=== PATIENT | female | born 1965 | race Caucasian/White ===

== ENCOUNTER 2016-12-04 20:14 | Emergency (ER) | payer OTHER ==
[2016-12-04] MEDS ORDERED: DUONEB 0.5-3 MG/3 ml Neb IH ONE ×2 (20:17→20:18)
[2016-12-04] MEDS ORDERED: solu-MEDROL 125 MG IV ONE (20:17)
--- NOTE | 2016-12-04 20:24 | ERPHSYRPT ---
- History of Present Illness Time Seen by Provider: 12/04/16 20:16 Source: patient, family () Physician History: CC: diff breathing Hx: 51 y/o patient of RACHEL Mccartney. She has hx of intermittent asthma. Uses prn inhalers/nebs. No real bad exacerbation for 5 years. No other medications. Today she has cough, wheeze, diff breathing. [place] hot. Coworkers have been in hospital with flu. No chest pain. Prior hysterectomy. Symptoms moderate and not relieved with inhalers at home X2 this afternoon. Timing/Duration: today Severity of Dyspnea-Max: moderate Severity of Dyspnea-Current: moderate Allergies/Adverse Reactions: No Known Drug Allergies Allergy (Unverified 05/13/13 09:35) Home Medications: No Home Meds 0 05/13/13 [History] Hx Tetanus, Diphtheria Vaccination/Date Given: Yes Hx Influenza Vaccination/Date Given: No Hx Pneumococcal Vaccination/Date Given: No - Review of Systems Constitutional: No Fever, No Chills Eyes: No Symptoms Ears, Nose, & Throat: No Throat Pain Respiratory: Cough, Dyspnea, Wheezing Cardiac: No Chest Pain Abdominal/Gastrointestinal: No Abdominal Pain, No Nausea, No Vomiting Genitourinary Symptoms: No Symptoms Skin: No Rash Neurological: No Headache All Other Systems: Reviewed and Negative - Past Medical History Pertinent Past Medical History: Yes Respiratory History: Asthma Other Medical History: Pituitary Tumor - Past Surgical History Past Surgical History: Yes Female Surgical History: Hysterectomy Other Surgical History: TONSILLECTOMY - Social History Smoking Status: Never smoker Exposure to second hand smoke: No Drug Use: none Patient Lives Alone: No ( here with , 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) Significant Family History: no pertinent family hx - Female History Hx Now: No - Nursing Vital Signs Nursing Vital Signs: Initial Vital Signs Temperature 99.0 F Temperature Source Oral Pulse Rate 97 Respiratory Rate 22 Blood Pressure [] 159/85 Pain Intensity 0 - Physical Exam General Appearance: alert, obese Eye Exam: PERRL/EOMI Neck Exam: normal inspection, non-tender, supple Respiratory Exam: wheezing (scattered) Cardiovascular/Chest Exam: regular rate/rhythm Abdominal/Gastrointestinal Exam: soft, No tenderness, No distention Extremity Exam: non-tender, normal range of motion, no calf tenderness, no pedal edema Neurologic Exam: alert, oriented x 3, cooperative, sensation nml, No motor deficits Skin Exam: warm, dry, No rash SpO2 Interpretation: normal SpO2: 98 Oxygen Delivery: Room Air - Course Nursing assessment & vital signs reviewed: Yes - Radiology Exams cxr X-ray Interpretation: Reviewed by me (poor inspiration, no consolidation) Ordered Tests: Active Orders 24 hr Category Date Time Status IV Insertion STAT Care 12/04/16 20:17 Active Pulse Oximetry (ED) STAT Care 12/04/16 20:17 Active CHEST 1 VIEW (PORTABLE) Stat Exams 12/04/16 20:17 Taken CBC W DIFF Stat Lab 12/04/16 20:30 Completed CMP Stat Lab 12/04/16 20:30 Completed Lactic Acid Urgent Lab 12/04/16 20:17 Completed MAGNESIUM Stat Lab 12/04/16 20:30 Completed Respiratory Nebulizer STAT RT 12/04/16 20:17 Completed Respiratory Nebulizer STAT RT 12/04/16 21:07 Active Medication Summary Discontinued Medications Generic Name Dose Route Start Last Admin Trade Name Freq PRN Reason Stop Dose Admin Albuterol Sulfate 2.5 mg 12/04/16 21:07 12/04/16 21:16 Proventil 2.5 Mg/3 Ml Neb IH 12/04/16 21:08 2.5 mg STAT ONE Administration Albuterol Sulfate Confirm 12/04/16 21:14 Proventil 2.5 Mg/3 Ml Neb Administered 12/04/16 21:15 Dose 2.5 mg IH .STK-MED ONE Albuterol/Ipratropium 3 ml 12/04/16 20:17 12/04/16 20:22 Duoneb 0.5-3 Mg/3 Ml Neb IH 12/04/16 20:18 3 ml STAT ONE Administration Albuterol/Ipratropium Confirm 12/04/16 20:18 Duoneb 0.5-3 Mg/3 Ml Neb Administered 12/04/16 20:19 Dose 3 ml IH .STK-MED ONE Methylprednisolone Sodium Succinate 125 mg 12/04/16 20:17 12/04/16 20:37 Solu-Medrol 125 Mg IV 12/04/16 20:18 125 mg STAT ONE Administration Methylprednisolone Sodium Succinate Confirm 12/04/16 20:25 Solu-Medrol 125 Mg Administered 12/04/16 20:26 Dose 125 mg .ROUTE .STK-MED ONE Lab/Rad Data: Laboratory Result Diagrams 12/04/16 20:30 12/04/16 20:30 Laboratory Results 12/04/16 12/04/16 12/04/16 Range/Units 20:30 20:30 20:25 WBC 9.4 (4.0-10.5) K/mm3 RBC 4.76 (4.1-5.4) M/mm3 Hgb 14.5 (12.0-16.0) gm/dl Hct 42.4 (35-47) % MCV 89.1 (78-100) fl MCH 30.5 (26-32) pg MCHC 34.2 (32-36) g/dl RDW 13.4 (11.5-14.0) % Plt Count 218 (150-450) K/mm3 MPV 9.1 (6-9.5) fl Gran % 74.6 H (36.0-66.0) % Lymphocytes % 15.0 L (24.0-44.0) % Monocytes % 5.2 (0.0-12.0) % Eosinophils % 4.9 (0.00-5.0) % Basophils % 0.3 (0.0-0.4) % Basophils # 0.03 (0-0.4) Sodium 144 (136-145) mEq/L Potassium 4.0 (3.5-5.1) mEq/L Chloride 105 (98-107) mEq/L Carbon Dioxide 30.6 (21-32) mEq/L Anion Gap 12.6 (5-15) MEQ/L BUN 16 (9-20) mg/dL Creatinine 0.94 (0.55-1.30) mg/dl Estimated GFR > 60 ML/MIN Glucose 130 H (70-110) MG/DL Lactic Acid (0.4-2.0) Calcium 8.9 (8.5-10.1) mg/dL Magnesium 1.9 (1.8-2.4) mg/dL Total Bilirubin 0.6 (0.2-1.0) mg/dL AST 33 (15-37) U/L ALT 71 (12-78) U/L Alkaline Phosphatase 69 (46-116) U/L Serum Total Protein 7.5 (6.4-8.2) gm/dL Albumin 3.7 (3.4-5.0) g/dL Influenza Type A Ag NEGATIVE (NEGATIVE) Influenza Type B Ag NEGATIVE (NEGATIVE) RSV (PCR) NEGATIVE (Negative) 12/04/16 Range/Units 20:17 WBC (4.0-10.5) K/mm3 RBC (4.1-5.4) M/mm3 Hgb (12.0-16.0) gm/dl Hct (35-47) % MCV (78-100) fl MCH (26-32) pg MCHC (32-36) g/dl RDW (11.5-14.0) % Plt Count (150-450) K/mm3 MPV (6-9.5) fl Gran % (36.0-66.0) % Lymphocytes % (24.0-44.0) % Monocytes % (0.0-12.0) % Eosinophils % (0.00-5.0) % Basophils % (0.0-0.4) % Basophils # (0-0.4) Sodium (136-145) mEq/L Potassium (3.5-5.1) mEq/L Chloride (98-107) mEq/L Carbon Dioxide (21-32) mEq/L Anion Gap (5-15) MEQ/L BUN (9-20) mg/dL Creatinine (0.55-1.30) mg/dl Estimated GFR ML/MIN Glucose (70-110) MG/DL Lactic Acid 1.9 (0.4-2.0) Calcium (8.5-10.1) mg/dL Magnesium (1.8-2.4) mg/dL Total Bilirubin (0.2-1.0) mg/dL AST (15-37) U/L ALT (12-78) U/L Alkaline Phosphatase (46-116) U/L Serum Total Protein (6.4-8.2) gm/dL Albumin (3.4-5.0) g/dL Influenza Type A Ag (NEGATIVE) Influenza Type B Ag (NEGATIVE) RSV (PCR) (Negative) - Progress Progress Note: 12/04/16 21:08 She feels much better after nebs. Steroids given. Await flu swab. Will repeat neb. She has duoneb at home. 12/04/16 21:38 A little tachycardic after neb. She feels better and wants to go home. Rx given. Counseled pt/family regarding: diagnosis, need for follow-up - Departure Time of Disposition: 21:38 Departure Disposition: Home Clinical Impression: Acute asthmatic bronchitis Condition: Fair Critical Care Time: No Referrals: Katty Mccartney NP [Primary Care Provider] - Instructions: Asthma -- Adult, Bronchitis Additional Instructions: UPPER RESPIRATORY INFECTIONS 1. The signs and symptoms of a cold may last up to 10 days. These illnesses are due to viruses which are not treatable with antibiotics. 2. The following suggestions can aid in recovery and to minimize symptoms: A. Increase fluid intake. B. Acetaminophen or Ibuprofen as directed. C. Avoid smoking environments as this will increase the risk of developing pneumonia. D. For children, may use a cool mist vaporizer in the child's room. 3. Contact your Family Physician if you note: A. Persisten fever >103 for more than 3 days B. Breathing difficulty C. Productive cough of yellow/green sputum D. Illness greater than 7 days E. Persistent vomiting F. Stiff neck Rx prednisone to start tomorrow. Rx doxycycline to start tomorrow. Use your duoneb every 4 hours as needed. Drink plenty of fluids. Return for problems or concerns. Follow up with ADMINISTRATIVE ASSISTANT next week. Prescriptions: Doxycycline Hyclate 100 mg [Vibramycin 100 MG] 100 mg PO BID #19 tab Prednisone 20 mg [Deltasone 20 mg] 2 tab PO DAILY #8 tablet
[2016-12-04] MEDS ORDERED: solu-MEDROL 125 MG ONE (20:25)
[2016-12-04 20:36] LABS: BASOPHIL % 0.3 % (0.0-0.4); Eosinophil % 4.9 % (0.00-5.0); Granulocytes % 74.6 % (36.0-66.0); Mean Cell Volume 89.1 fl (78-100); Mean Corpuscular Hemoglobin 30.5 pg (26-32); Mean Platelet Volume 9.1 fl (6-9.5); Monocytes % 5.2 % (0.0-12.0); Platelet Count 218 K/mm3 (150-450); Red Blood Count 4.76 M/mm3 (4.1-5.4); Red Cell Distribution Width 13.4 % (11.5-14.0); White Blood Count 9.4 K/mm3 (4.0-10.5)
[2016-12-04 20:57] LABS: ALBUMIN 3.7 g/dL (3.4-5.0); ALKALINE PHOSPHATASE 69 U/L (46-116); ANION GAP 12.6 MEQ/L (5-15); BILIRUBIN,TOTAL 0.6 mg/dL (0.2-1.0); BLOOD UREA NITROGEN 16 mg/dL (9-20); CHLORIDE 105 mEq/L (98-107); Carbon Dioxide 30.6 mEq/L (21-32); Glucose 130 MG/DL (70-110); MAGNESIUM 1.9 mg/dL (1.8-2.4); SGOT/AST 33 U/L (15-37); SGPT/ALT 71 U/L (12-78); SODIUM 144 mEq/L (136-145); Total Protein 7.5 gm/dL (6.4-8.2)
[2016-12-04] MEDS ORDERED: PROVENTIL 2.5 MG/3 ML NEB IH ONE ×2 (21:07→21:14)
[2016-12-04] MEDS ORDERED: Vibramycin 100 MG PO ONE (21:37)
[2016-12-04] MEDS ORDERED: DELTASONE 20 MG PO ONE (21:37)
[2016-12-04] MEDS ORDERED: DELTASONE 20 MG ONE (21:40)
[2016-12-04] MEDS ORDERED: Vibramycin 100 MG ONE (21:40)
[2016-12-04 21:49] VITALS: BP 145/63; PULSE 113; O2SAT 96
--- NOTE | 2016-12-05 08:45 | XRAY ---
Indication: Short of breath. Comparison: July 22, 2011. Portable chest slightly underinflated without focal infiltrate, consolidation, or large effusion. Heart is not enlarged. Bony thorax intact. Impression: Nonacute underinflated chest.
== END 2016-12-04 21:55 | disposition home or self-care (01) ==
LOC: ED 20:14
DX: J45.909 Unspecified asthma, uncomplicated (principal); R05 Cough; R06.2 Wheezing
CPT/HCPCS: 36000; 36415; 71010; 80053; 83605; 83735; 85025; 87631; 94640; 96374; 99284; J2930; A9270-GY

== ENCOUNTER 2022-11-09 13:00 | Day surgery (SDC) | payer OTHER ==
--- NOTE | 2022-11-09 10:55 | HP ---
DATE OF SURGERY: 11/09/2022 HISTORY OF PRESENT ILLNESS: The patient is a 57-year-old with nonhealing lesion on abdominal wall and posterior thigh question of lipoma or cyst. Regarding skin right posterior thigh area she did not want excised but given this enlarging thigh lipoma or cyst as well as nonhealing lesion of abdominal wall, she desires excision of both it and nonhealing lesion of indeterminate behavior on abdominal wall. PAST MEDICAL HISTORY: Asthma, arthritis. PAST SURGICAL HISTORY: T&A. Hysterectomy. MEDICATIONS: Albuterol sulfate. ALLERGIES: METFORMIN. FAMILY HISTORY: Negative in regards to this problem. SOCIAL HISTORY: No smoking or alcohol abuse. REVIEW OF SYSTEMS: Fourteen systems reviewed. No chest pain or palpitations. Other systems negative or noncontributory as above and per preadmission questionnaire. PHYSICAL EXAMINATION: BMI 38.97. GENERAL: No acute distress. HEENT: Sclerae nonicteric. NECK: No JVD. CHEST: Equal excursion, nonlabored breathing. CVS: Regular rate and rhythm. ABDOMEN: Soft. No peritoneal signs. Nonhealing abdominal wall lesion of indeterminate behavior. EXTREMITIES: No significant edema. Lipoma or cyst of right thigh. NEURO: Alert, oriented, moving extremities symmetrically. PSYCH: Appropriate mood and affect. SKIN: Dry. IMPRESSION: Enlarging right posterior thigh subcutaneous mass possible lipoma or cyst as well as nonhealing lesion abdominal wall of indeterminate behavior in need of excision. General risk of bleeding or infection possibly requiring packing, risk of hematoma or seroma formation, risk of wound dehiscence, aches, pains, burning or numbness, risk of anesthesia, deep venous thrombosis, pulmonary embolism, or pneumonia but not limited to. Risk of involved margins possibly requiring other procedures. Consent obtained. Will proceed with excisional biopsy of right posterior thigh subcutaneous mass and nonhealing lesion abdominal wall of indeterminate behavior as an outpatient.
[~2022-11-09 13:00] MED LIST: Lactated Ringers 1,000 ML IV ONE; Sensorcaine 0.25% 10 ML ONE
[2022-11-09] MEDS ORDERED: Lactated Ringers 1,000 ML IV ONE (13:22)
[2022-11-09] MEDS ORDERED: Lactated Ringers 1,000 ML IV SCH (13:30)
[2022-11-09] MEDS ORDERED: Sensorcaine 0.25% 10 ML ONE ×2 (14:16→15:54)
[2022-11-09] MEDS ORDERED: SUBLIMAZE 100 MCG/2 ML ONE ×2 (15:14→16:48)
[2022-11-09] MEDS ORDERED: Decadron 4 MG INJ ONE (15:14)
[2022-11-09] MEDS ORDERED: Xylocaine-Mpf 2% 5 Ml Vial ONE (15:14)
[2022-11-09] MEDS ORDERED: TORAdol 30 mg Injection ONE (15:14)
[2022-11-09] MEDS ORDERED: Zofran 4 MG/2 ML VIAL ONE ×2 (15:14→17:27)
[2022-11-09] MEDS ORDERED: Zemuron 100 MG/10 ML ONE (15:14)
[2022-11-09] MEDS ORDERED: DIPRIVAN 200 MG/20 ML IV ONE (15:14)
[2022-11-09] MEDS ORDERED: BRIDION 200MG/2ML IV ONE (15:14)
[2022-11-09] MEDS ORDERED: KEFZOL 1 GM** 3 G in Sodium Chloride 0.9% 50 ML 50 ML IV SCH (16:00)
[2022-11-09] MEDS ORDERED: MORPHINE SULFATE 10 MG/ML ONE (17:01)
[2022-11-09] MEDS ORDERED: Zofran 4 MG/2 ML VIAL IV PRN (17:27)
[2022-11-09 17:37] VITALS: O2SAT 92
[2022-11-09 17:47] VITALS: BP 141/99; PULSE 78
--- NOTE | 2022-11-10 11:42 | OP ---
SURGERY DATE/TIME: 11/09/2022 1526 PREOPERATIVE DIAGNOSES: 1) Enlarging posterior right thigh subcutaneous mass or lipoma. 2) Abdominal wall lesion of indeterminate behavior with intermittent bleeding. POSTOPERATIVE DIAGNOSES: 1) Enlarging posterior right thigh subcutaneous mass or lipoma. 2) Abdominal wall lesion of indeterminate behavior with intermittent bleeding. PROCEDURES: 1) Excisional biopsy of right posterior thigh subcutaneous mass or lipoma (approximately 4 cm) with intermediate closure. 2) Excisional biopsy of lesion of indeterminate behavior abdominal wall (approximately 1.5 cm with margins) with intermediate closure. SURGEON: Dr. Yury Palacios. ANESTHESIA: General. ESTIMATED BLOOD LOSS: Minimal. INDICATIONS: As noted above. Risks and benefits explained in detail and not limited to and consent obtained. The site had been confirmed and marked in the preoperative holding area. The abdominal wall area had some intermittent bleeding that improved a little bit. She still desires excision. DESCRIPTION OF PROCEDURE AND FINDINGS: Taken to the operating room. General anesthesia induced. She is placed in dorsal lithotomy position. She is prepped and draped in the usual sterile fashion. After official time out and no disagreement with planned procedure, starting first at the abdominal wall area marking out to normal appearing skin that she had available around the site. Dissection carried down to deep subcu. Specimen passed off. It measured about 1.5 cm with margins, had 2 to 2.5 cm long spindle-shaped excision. This is closed in intermediate fashion with deep superficial subcu closed with 2-0 Vicryl. Skin closed with 4-0 Vicryl. Steri-Strips and sterile dressings applied. 0.25% Marcaine local injected around the area. Attention was then turned to the posterior thigh area. Clean instruments were used and clean gloves. Going out around this dissection was carried down to subcutaneous tissue and this fatty appearing tumor extended deep. It is carefully dissected off of the underlying normal subcutaneous fat and fascia in deeper plane and passed off. It measured about 4 cm in size in vivo. The wound is irrigated out. Good hemostasis noted. One little, small oozing wallpaper scraper is closed with 3-0 Vicryl. The deep and superficial subcu closed with 3-0 Vicryl. Skin closed with 4-0 Vicryl running subcuticular fashion. Dermabond and sterile dressing applied. The patient tolerated the procedure well. There were no immediate complications. Findings discussed with the family out in the waiting area.
== END 2022-11-09 17:55 | disposition home or self-care (01) ==
LOC: SDC 13:00
PROVIDERS: ATTEND Surgery
DX: L90.5 Scar conditions and fibrosis of skin (principal); D17.23 Benign lipomatous neoplasm of skin and subcutaneous tissue of right leg
CPT/HCPCS: 93005; J1100; J1885; J2270; J2405; J2704; J3010; 00730

== ENCOUNTER 2022-12-21 10:55 | Day surgery (SDC) | payer OTHER ==
--- NOTE | 2022-12-21 09:40 | HP ---
DATE OF SURGERY: 12/21/2022 HISTORY OF PRESENT ILLNESS: The patient is a 57-year-old with nonhealing lesion abdominal wall and also posterior thigh question lipoma or cyst. She has a skin tag on the left that she does not want anything done with. She also reports history of inflamed esophagus at this time and now needs upper endoscopy. Heartburn, cardiac etiology ruled out on emergency department visit and now she is in need of EGD. PAST MEDICAL HISTORY: Gastroesophageal reflux disease, anemia, osteoarthritis. She did have skin excision of abdominal wall skin lesion path was benign. PAST SURGICAL HISTORY: T&A, hysterectomy. MEDICATIONS: Albuterol sulfate. ALLERGIES: METFORMIN. FAMILY HISTORY: Colon cancer. Negative for esophageal cancer. SOCIAL HISTORY: No smoking or alcohol abuse. REVIEW OF SYSTEMS: Fourteen systems reviewed. No chest pain or palpitations. Other systems negative or noncontributory as above and per preadmission questionnaire. PHYSICAL EXAMINATION: GENERAL: No acute distress. HEENT: Sclerae nonicteric. NECK: No JVD. CHEST: Equal excursion, nonlabored breathing. CVS: Regular rate and rhythm. ABDOMEN: Soft. Abdominal wall lesion. EXTREMITIES: No cyanosis or edema. NEURO: Alert, oriented, moving extremities symmetrically. PSYCH: Appropriate mood and affect. SKIN: Dry. Posterior thigh question lipoma versus cyst or other etiology. IMPRESSION: Increased heartburn and history of inflamed esophagus the patient is in need of EGD possible biopsy to evaluate for esophagitis, gastritis, peptic ulcer disease or other etiology. Risks and benefits explained in detail including but not limited to bleeding or infection, risk of bowel injury or perforation, risk of missed or nondiagnosis or incomplete exam possibly requiring barium swallow, other studies or procedures. General risk of anesthesia or sedation, risk of bowel prep but not limited to. She understands and agrees to the planned procedure will proceed with EGD possible biopsy as an outpatient.
[2022-12-21] MEDS ORDERED: Lactated Ringers 1,000 ML IV ONE (11:25)
[2022-12-21] MEDS ORDERED: Lactated Ringers 1,000 ML IV SCH (11:30)
[2022-12-21 13:15] VITALS: O2SAT 99
[2022-12-21] MEDS ORDERED: Xylocaine-Mpf 2% 5 Ml Vial ONE (13:31)
[2022-12-21] MEDS ORDERED: Versed 2 MG/2 ML Injection ONE (13:31)
[2022-12-21] MEDS ORDERED: DIPRIVAN 200 MG/20 ML IV ONE (13:31)
[2022-12-21 13:37] VITALS: BP 146/88; PULSE 76
--- NOTE | 2022-12-21 15:04 | OP ---
SURGERY DATE/TIME: 12/21/2022 1230 PREOPERATIVE DIAGNOSIS: History of heartburn, history of inflamed esophagus, need for upper endoscopy to evaluate for esophagitis and gastritis. POSTOPERATIVE DIAGNOSES: 1) Mild gastritis. 2) Short segment of distal erosive esophagitis. 3) Very small hiatal hernia. 4) ASA Class III. 5) Obesity. PROCEDURES: 1) EGD with cold biopsy of the antrum for Helicobacter pylori. 2) Cold biopsy histology for distal esophagitis. 3) Cold biopsy of mid esophagus to evaluate for eosinophilic esophagitis. SURGEON: Dr. Yury Palacios. ANESTHESIA: MAC. ESTIMATED BLOOD LOSS: Minimal. INDICATIONS: As noted above. Risks and benefits explained in detail and not limited to and consent was obtained. DESCRIPTION OF PROCEDURE AND FINDINGS: The patient is taken to the endoscopy room. MAC anesthesia introduced. After official time out and no disagreement with planned procedure, bite block positioned. Video gastroscope easily passed down the esophagus to the patent pylorus down to the third portion of duodenum. Third, second and first portion of the duodenum grossly unremarkable. Back in the stomach, she did have some gastric erythema, some little superficial erosions. Cold biopsy taken to evaluate for Helicobacter pylori. Good hemostasis noted. On retroflex, she did have a little, small hiatal hernia, slight weakness of the hiatus. No large hiatal hernia. Scope pulled back. Gastroesophageal junction was about 36 cm. There was a short segment of distal esophagitis, a little bit of superficial erosion. Cold biopsy is taken. Good hemostasis noted. I also did some random cold biopsies of mid esophagus to evaluate for eosinophilic esophagitis. The patient tolerated the procedure well. There were no immediate complications. Findings discussed with the family out in the waiting room. I will see her back in the office in a week to go over the results.
== END 2022-12-21 13:40 | disposition home or self-care (01) ==
LOC: SDC 10:55
PROVIDERS: ATTEND Surgery
DX: K29.70 Gastritis, unspecified, without bleeding (principal); R12 Heartburn; K22.10 Ulcer of esophagus without bleeding; K44.9 Diaphragmatic hernia without obstruction or gangrene; E66.9 Obesity, unspecified; Z80.0 Family history of malignant neoplasm of digestive organs
CPT/HCPCS: 88305; J2250; J2704

== ENCOUNTER 2024-12-03 17:26 | Emergency (ER) | payer OTHER ==
[2024-12-03] MEDS ORDERED: KENALOG 0.1% CREAM 15 GM TP ONE (17:27)
[2024-12-03 17:52] VITALS: RESP 18; TEMP 97; O2SAT 98
--- NOTE | 2024-12-03 18:14 | ERPHSYRPT ---
- History of Present Illness Time Seen by Provider: 12/03/24 18:09 Source: patient Patient Subjective Stated Complaint: BUG BITE TO ANTERIOR CHEST Triage Nursing Assessment: PT AMB PER SELF TO ROOM W/O DIFFICULTY, PT TAYLOR, PT COLOR TRUE TO RACE, PT ANTERIOR CHEST PRESENTS WITH A LARGE RED INFLAMMED AREA WITH NOTED BUG BITE TO CENTER, PT STATES THAT IT ITCHES, PT DENIES CP OR SOB. Physician History: Patient is 59-year-old female with history of asthma came to the emergency room with the insect bite probably for 5 days ago in the middle of the chest. Patient went to see the primary care physician and she was given steroid shot and antibiotic cream to put it on. But have skin redness started increasing in the size and she felt like she is little bit short of breath so she came to the emergency room. In the emergency room she was denying any shortness of breath fever chills nausea vomiting trouble breathing. Timing/Duration: day(s) (4-5 days ago) Quality: burning, itchy Possible Causes: insect bite Associated Symptoms: denies symptoms Allergies/Adverse Reactions: metformin Adverse Reaction (Unknown, Verified 12/03/24 17:52) band-aids Adverse Reaction (Mild, Uncoded 12/03/24 17:52) Rash VERIFIED 12/03/24 Home Medications: Albuterol Sulfate [Proventil Hfa] 1 puff IH DAILY PRN PRN 10/13/22 [History] Albuterol/Ipratropium 3ml Neb* [DUONEB 0.5-3 MG/3 ml Neb] 1 amp IH DAILY PRN PRN 10/13/22 [History] Ergocalciferol (Vitamin D2) [Vitamin D2] 50,000 unit PO Q7D 12/21/22 [History] Hx Tetanus, Diphtheria Vaccination/Date Given: No Hx Influenza Vaccination/Date Given: No Hx Pneumococcal Vaccination/Date Given: No Immunizations Up to Date: No Travel Risk - International Travel Have you traveled outside of the country in past 3 weeks: No - Emerging Infectious Disease Are you exhibiting symptoms associated with any current EIDs: No - Review of Systems Constitutional: No Symptoms Eyes: No Symptoms Ears, Nose, & Throat: No Symptoms Respiratory: No Symptoms Cardiac: No Symptoms Abdominal/Gastrointestinal: No Symptoms Genitourinary Symptoms: No Symptoms Musculoskeletal: No Symptoms Skin: Rash Neurological: No Symptoms Psychological: No Symptoms Endocrine: No Symptoms - Past Medical History Pertinent Past Medical History: Yes Neurological History: No Pertinent History ENT History: No Pertinent History Cardiac History: No Pertinent History Respiratory History: Asthma Endocrine Medical History: No Pertinent History Musculoskeletal History: No Pertinent History GI Medical History: GERD History: No Pertinent History Psycho-Social History: Anxiety Female Reproductive Disorders: No Pertinent History Other Medical History: Pituitary Tumor. Excision skin lesion abdomen and leg - Past Surgical History Past Surgical History: Yes Neuro Surgical History: No Pertinent History Cardiac: No Pertinent History Respiratory: No Pertinent History Gastrointestinal: No Pertinent History Genitourinary: No Pertinent History Musculoskeletal: No Pertinent History Female Surgical History: Hysterectomy Other Surgical History: TONSILLECTOMY, nose Significant Family History: no pertinent family hx - Social History Smoking Status: Never smoker Exposure to second hand smoke: No Drug Use: none - Social Determinants of Health Will the patient participate in the screening: Yes Do you worry about a steady place to live?: No Do you have any problems with any of the following?: No known problems In the past 12 months,have you had to go without utilities?: No Transportation Issues: No Has anyone in your support network made you feel unsafe?: No Have you or anyone in your house had to go w/o enough food: No - Nursing Vital Signs Nursing Vital Signs: Initial Vital Signs Temperature 97 F 12/03/24 17:26 Pulse Rate 72 12/03/24 17:26 Respiratory Rate 18 12/03/24 17:26 Blood Pressure 149/78 12/03/24 17:26 O2 Sat by Pulse Oximetry 98 12/03/24 17:26 Pain Scale Pain Intensity 0 - Physical Exam General Appearance: no apparent distress Eye Exam: PERRL/EOMI Ears, Nose, Throat Exam: normal ENT inspection Neck Exam: normal inspection Respiratory Exam: normal breath sounds Cardiovascular Exam: regular rate/rhythm Gastrointestinal/Abdomen Exam: soft Back Exam: normal inspection Extremity Exam: normal inspection Neurologic Exam: alert, oriented x 3 Skin Exam: rash Lymphatic Exam: No adenopathy SpO2 Interpretation: normal SpO2: 98 O2 Delivery: Room Air - Course Nursing assessment & vital signs reviewed: Yes Ordered Tests: Medication Summary Generic Name Dose Route Start Last Admin Trade Name Freq PRN Reason Stop Dose Admin Triamcinolone Acetonide 1 gm 12/03/24 22:00 Triamcinolone Acetonide 0.1% 15 Gm Cream TP 01/02/25 21:59 QID [facility] - Progress Progress: unchanged Counseled pt/family regarding: diagnosis, need for follow-up Medical Desision Making - Independent Historian Additional History obtained from: Spouse - Diagnostic Testing Diagnostic test were ordered, analyzed, and reviewed by me: No - Risk of complications Minimal Risk: Minimal risk of morbidity - Departure Departure Disposition: Home Clinical Impression: Insect bite (nonvenomous) of right front wall of thorax, initial encounter, Dermatitis Condition: Stable Critical Care Time: No Referrals: DIOGO ROGERS, WELDER HELPER [Primary Care Provider] - Follow up/PCP as directed Instructions: Insect bites and stings, Insect bites and stings - ED discharge instructions Additional Instructions: Use triamcinolone cream which we have provided you 4 times a day. It will usually take 3 to 4 days for this rash to go away. Discharge/Care Plan KUSH RICO was seen on 12/03/24 in the Emergency Room. The patient was counseled regarding Diagnosis,Lab results, Imaging studies, need for follow up and when to return to the Emergency Room. Prescriptions given: Discharge Note I have spoken with the patient and/or caregivers. I have explained the patient's condition, diagnosis and treatment plan based on the information available to me at this time. I have answered the patient's and/or caregiver's questions and addressed any concerns. The patient and/or caregivers have as good understanding of the patient's diagnosis, condition and treatment plan as can be expected at this point. The vital signs have been stable. The patient's condition is stable and appropriate for discharge from the emergency department. The patient will pursue further outpatient evaluation with the primary care physician or other designated or consulting physician as outlined in the discharge instructions. The patient and/or caregivers are agreeable to this plan of care and follow-up instructions have been explained in detail. The patient and/or caregivers have received these instruction. The patient/and or caregivers are aware that any significant change in condition or worsening of symptoms should prompt an immediate return to this or the closest emergency department or call 911. KUSH RICO was seen on 12/03/24 n the Emergency Room. At that time you were treated for an emergent condition, during your visit Laboratory, Radiology and/or other procedures may have been ordered. It is very important that you follow-up with your Primary Care Physician DIOGO ROGERS within the next 24-48 hours to review your Emergency Room visit and the final results of testing that was ordered. Some test results such as Urine Cultures, Blood Cultures, and other cultures if ordered will not be finalized for 24-48 hours. If you do not have a Primary Care Provider please call the medical records department at [phone] ext [phone] to obtain a copy of your results or you may sign into our patient portal to obtain these results by visiting us @ [email or web address] and completing the following steps: 1. Click on the Patient Portal link 2. Click the Patient Self Enrollment Link to complete the enrollment form and entering your 3. Once the enrollment form is completed you will receive an email with a temporary ID and password at the email address you provided. 4. Next choose a user name and password. Your user name must be at least 4 characters long and your password must be at least 4 characters long. 5. Choose a security question from the list and provide your answer to the question. If you already have signed into the Health Portal you may access your Health Care Information 12/04 by the following steps: 1. Login to our website @ [email or web address] 2. Enter your original user name and password. FAQS The [facility] Health Portal is an online tool that contains your Lab Results, Radiology Reports, Visit History, Discharge Instructions and Health Summary Lab and Radiology Results will not be available for 72 hours on the portal. The Portal is a secure site, passwords are encryted and URLs are re-written so they cannot be copied and pasted. You and authorized family members are the only ones who can access your Portal. Also there is a timeout feature that protects your information if you leave the Portal page open. If you have technical difficulty please use the Contact Us link on the page this will allow you to submit any questions you have regarding the Portal or you may contact the Medical Record Department at [phone] ext [phone].
[2024-12-03 18:32] VITALS: BP 131/67; PULSE 70
[2024-12-03] MEDS: KENALOG 0.1% CREAM 15 GM TP SCH (18:35)
== END 2024-12-03 18:39 | disposition home or self-care (01) ==
LOC: ED 17:26
DX: S20.361A Insect bite (nonvenomous) of right front wall of thorax, initial encounter (principal); L30.9 Dermatitis, unspecified; Z79.899 Other long term (current) drug therapy
CPT/HCPCS: 99283; A9270-GY

== ENCOUNTER 2025-01-10 19:45 | Emergency (ER) | payer OTHER ==
[2025-01-10 20:53] VITALS: TEMP 96.9
--- NOTE | 2025-01-10 22:15 | ERPHSYRPT ---
- History of Present Illness Time Seen by Provider: 01/10/25 22:09 Source: patient Exam Limitations: no limitations Patient Subjective Stated Complaint: c/o rash on chest and neck Triage Nursing Assessment: Patient came into ED with c/o rash on chest and neck that started a weerk ago when she was outside doing yard work. Patient believes she has poison sumac. States that she was been taking prednisone but it isn't helping. patient states she will occasionally fel short of breathe but that it could be her asthma. Rash is reddened and welt like, and is only on the and chest. vitals wnl, afebrile, 98% on RA, gait steady, patient doesn't appear to be in any distress at this time. Physician History: Patient is a 59-year-old female presents to our ED for evaluation of a rash on chest and neck that started approximately 1 week ago after doing yard work. Patient believes it is poison sumac. Patient states she has been taking prednisone but is not helping. No active shortness of breath. No fever. No nausea no vomiting no diaphoresis. Patient otherwise feels well she is conversant well-appearing and voices no other complaints or concerns at this time. Portions of this note were created with voice recognition technology. There may be grammatical, spelling, punctuation or sound alike errors Timing/Duration: week(s) (1 week) Severity: moderate Modifying Factors: Improves With: nothing Associated Symptoms: denies symptoms Allergies/Adverse Reactions: metformin Adverse Reaction (Unknown, Verified 01/10/25 20:40) band-aids Adverse Reaction (Mild, Uncoded 01/10/25 20:40) Rash VERIFIED 12/03/24 Home Medications: Albuterol Sulfate [Proventil Hfa] 1 puff IH DAILY PRN PRN 10/13/22 [History] Albuterol/Ipratropium 3ml Neb* [DUONEB 0.5-3 MG/3 ml Neb] 1 amp IH DAILY PRN PRN 10/13/22 [History] Hx Tetanus, Diphtheria Vaccination/Date Given: No Hx Influenza Vaccination/Date Given: No Hx Pneumococcal Vaccination/Date Given: No Travel Risk - International Travel Have you traveled outside of the country in past 3 weeks: No - Emerging Infectious Disease Are you exhibiting symptoms associated with any current EIDs: Yes Symptoms: Rash - Review of Systems Constitutional: No Symptoms, No Fever, No Chills Eyes: No Symptoms Ears, Nose, & Throat: No Symptoms Respiratory: No Symptoms, No Cough, No Dyspnea Cardiac: No Symptoms, No Chest Pain, No Edema, No Syncope Abdominal/Gastrointestinal: No Symptoms, No Abdominal Pain, No Nausea, No Vomiting, No Diarrhea Genitourinary Symptoms: No Symptoms, No Dysuria Musculoskeletal: No Symptoms, No Back Pain, No Neck Pain Skin: No Symptoms, No Rash Neurological: No Symptoms, No Dizziness, No Focal Weakness, No Sensory Changes Psychological: No Symptoms Endocrine: No Symptoms Hematologic/Lymphatic: No Symptoms Immunological/Allergic: No Symptoms All Other Systems: Reviewed and Negative - Past Medical History Pertinent Past Medical History: Yes Neurological History: No Pertinent History ENT History: No Pertinent History Cardiac History: No Pertinent History Respiratory History: Asthma Endocrine Medical History: No Pertinent History Musculoskeletal History: No Pertinent History GI Medical History: GERD History: No Pertinent History Psycho-Social History: Anxiety Female Reproductive Disorders: No Pertinent History Other Medical History: Pituitary Tumor. Excision skin lesion abdomen and leg - Past Surgical History Past Surgical History: Yes Neuro Surgical History: No Pertinent History Cardiac: No Pertinent History Respiratory: No Pertinent History Gastrointestinal: No Pertinent History Genitourinary: No Pertinent History Musculoskeletal: No Pertinent History Female Surgical History: Hysterectomy Other Surgical History: TONSILLECTOMY, nose Significant Family History: no pertinent family hx - Social History Smoking Status: Never smoker Exposure to second hand smoke: No Drug Use: none - Social Determinants of Health Will the patient participate in the screening: Yes Do you worry about a steady place to live?: No Do you have any problems with any of the following?: No known problems In the past 12 months,have you had to go without utilities?: No Transportation Issues: No Has anyone in your support network made you feel unsafe?: No Have you or anyone in your house had to go w/o enough food: No - Nursing Vital Signs Nursing Vital Signs: Initial Vital Signs Temperature 96.9 F 01/10/25 20:42 Pulse Rate 82 01/10/25 20:42 Respiratory Rate 18 01/10/25 20:42 Blood Pressure 143/92 01/10/25 20:42 O2 Sat by Pulse Oximetry 98 01/10/25 20:42 Pain Scale Pain Intensity 0 - Physical Exam General Appearance: no apparent distress, alert Eye Exam: PERRL/EOMI, eyes nml inspection Ears, Nose, Throat Exam: normal ENT inspection, moist mucous membranes Neck Exam: normal inspection, non-tender, supple, full range of motion Respiratory Exam: normal breath sounds, lungs clear, No respiratory distress Cardiovascular Exam: regular rate/rhythm, normal heart sounds, normal peripheral pulses Gastrointestinal/Abdomen Exam: soft, normal bowel sounds, No tenderness, No mass Back Exam: normal inspection, normal range of motion, No CVA tenderness, No vertebral tenderness Extremity Exam: normal inspection, normal range of motion, pelvis stable Neurologic Exam: alert, oriented x 3, cooperative, normal mood/affect, nml cerebellar function, nml station & gait, sensation nml, No motor deficits Skin Exam: normal color, warm, dry, No rash Lymphatic Exam: No adenopathy SpO2 Interpretation: normal SpO2: 97 O2 Delivery: Room Air - Course Nursing assessment & vital signs reviewed: Yes Ordered Tests: Medication Summary Generic Name Dose Route Start Last Admin Trade Name Freq PRN Reason Stop Dose Admin Prednisone 60 mg 01/10/25 22:22 Prednisone 10 Mg Tablet PO 01/10/25 22:23 ONCE STA - Progress Progress: improved Progress Note: 59-year-old female presents to our ED for evaluation of a contact dermatitis. Patient was exposed to poison sumac 1 week ago. Patient was treated with a Medrol Dosepak. No significant improvement. The area is pruritic. No fever no systemic manifestation. Physical exam reveals pruritic papular rash at the proximal anterior chest and neck. Patient denies shortness of breath at the moment. Patient completed her dose of Medrol Dosepak. Patient will likely need a higher dose. Patient received 60 mg dose of prednisone in our ED. A prescription for prednisone forwarded to patient's pharmacy as well as famotidine. Patient can take Benadryl along with it as needed. Patient agrees to follow-up with her primary care doctor within 48 hours for reevaluation. She voices no other complaints or concerns at this time. Portions of this note were created with voice recognition technology. There may be grammatical, spelling, punctuation or sound alike errors Complexity of problem addressed is moderate acute complicated. No critical care time. Complexity of data reviewed and analyzed as none. No specialized testing ordered. Diagnosis made based on history and physical exam. Risk of complication and or risk of morbidity/mortality of patient management is moderate. A prescription for famotidine and prednisone forwarded to patient's pharmacy. Vital stable. Time spent to discharge patient approximately 15 minutes. Plan of care established for shared decision making. No social determinants of health present to impede follow-up. Portions of this note were created with voice recognition technology. There may be grammatical, spelling, punctuation or sound alike errors 01/10/25 22:25 Counseled pt/family regarding: diagnosis, need for follow-up - Departure Departure Disposition: Home Clinical Impression: Contact dermatitis Condition: Stable Critical Care Time: No Referrals: DIOGO ROGERS, SENIOR PROJECT ARCHITECT [Primary Care Provider, [facility]] - Follow up/PCP as directed Additional Instructions: Discharge/Care Plan KUSH RICO was seen on 01/10/25 in the Emergency Room. The patient was counseled regarding Diagnosis,Lab results, Imaging studies, need for follow up and when to return to the Emergency Room. Prescriptions given: Discharge Note I have spoken with the patient and/or caregivers. I have explained the patient's condition, diagnosis and treatment plan based on the information available to me at this time. I have answered the patient's and/or caregiver's questions and addressed any concerns. The patient and/or caregivers have as good understanding of the patient's diagnosis, condition and treatment plan as can be expected at this point. The vital signs have been stable. The patient's condition is stable and appropriate for discharge from the emergency department. The patient will pursue further outpatient evaluation with the primary care physician or other designated or consulting physician as outlined in the discharge instructions. The patient and/or caregivers are agreeable to this plan of care and follow-up instructions have been explained in detail. The patient and/or caregivers have received these instruction. The patient/and or caregivers are aware that any significant change in condition or worsening of symptoms should prompt an immediate return to this or the closest emergency department or call 911. Prescriptions: Prednisone 10 mg [Deltasone 10 mg] 50 mg PO DAILY 3 Days #15 tablet Famotidine 20 mg [Pepcid 20 MG] 20 mg PO BID 7 Days #14 tablet
[2025-01-10] MEDS ORDERED: DELTASONE 20 MG ONE (22:27)
[2025-01-10] MEDS: DELTASONE 10 MG PO STA (22:27)
[2025-01-10] MEDS: DELTASONE 20 MG PO STA (22:28)
[2025-01-10 22:45] VITALS: BP 145/78; PULSE 79; RESP 17; O2SAT 98
== END 2025-01-10 22:44 | disposition home or self-care (01) ==
LOC: ED 19:45
DX: L24.7 Irritant contact dermatitis due to plants, except food (principal); Z79.52 Long term (current) use of systemic steroids; Z79.899 Other long term (current) drug therapy
CPT/HCPCS: 99281; 99283; A9270-GY

== ENCOUNTER 2025-04-14 20:36 | Observation (INO) | payer OTHER ==
--- NOTE | 2025-04-14 21:05 | ERPHSYRPT ---
- History of Present Illness Source: patient Exam Limitations: no limitations Patient Subjective Stated Complaint: redness and swelling present to RLE Triage Nursing Assessment: pt ambulated into the er; pt is axo x4; c/o swelling; pt states 9/10 pain to BLE; redness present to RLE; strong darren pedal pulses; no respiratory distress present; hypertensive Physician History: Patient had cellulitis and was treated about 8 days ago. She has been on doxycycline and cefdinir. As she got little bit better but it seems to be worsening. She has about 2 or 3 days left of her prescriptions. She does not have a fever or chills or any toxic or systemic symptoms. She is not diabetic that she knows of.There are some new areas of expansion that are extending the borders out about 5 to 10 cm proximally. It is on her right lower extremity Quality: burning, itchy, painful Severity: moderate Allergies/Adverse Reactions: metformin Adverse Reaction (Unknown, Verified 04/14/25 20:42) band-aids Adverse Reaction (Mild, Uncoded 04/14/25 20:42) Rash VERIFIED 12/03/24 Home Medications: Cefdinir 300 mg [Omnicef 300 mg] 300 mg PO BID 04/14/25 [History] Doxycycline Hyclate 100 mg [Vibramycin 100 MG] 100 mg PO BID 04/14/25 [History] Hx Tetanus, Diphtheria Vaccination/Date Given: No Hx Influenza Vaccination/Date Given: No Hx Pneumococcal Vaccination/Date Given: No Travel Risk - International Travel Have you traveled outside of the country in past 3 weeks: No - Emerging Infectious Disease Are you exhibiting symptoms associated with any current EIDs: No Symptoms: Rash - Review of Systems Constitutional: No Symptoms Eyes: No Symptoms Respiratory: No Symptoms Cardiac: No Symptoms All Other Systems: Reviewed and Negative - Past Medical History Pertinent Past Medical History: Yes Neurological History: No Pertinent History ENT History: No Pertinent History Cardiac History: No Pertinent History Respiratory History: Asthma Endocrine Medical History: No Pertinent History Musculoskeletal History: No Pertinent History GI Medical History: GERD History: No Pertinent History Psycho-Social History: Anxiety Female Reproductive Disorders: No Pertinent History Other Medical History: Pituitary Tumor. Excision skin lesion abdomen and leg - Past Surgical History Past Surgical History: Yes Neuro Surgical History: No Pertinent History Cardiac: No Pertinent History Respiratory: No Pertinent History Gastrointestinal: No Pertinent History Genitourinary: No Pertinent History Musculoskeletal: No Pertinent History Female Surgical History: Hysterectomy Other Surgical History: TONSILLECTOMY, nose Significant Family History: no pertinent family hx - Social History Smoking Status: Never smoker Exposure to second hand smoke: No Drug Use: none - Social Determinants of Health Will the patient participate in the screening: Yes Do you worry about a steady place to live?: No Do you have any problems with any of the following?: No known problems In the past 12 months,have you had to go without utilities?: No Transportation Issues: No Has anyone in your support network made you feel unsafe?: No Have you or anyone in your house had to go w/o enough food: No - Nursing Vital Signs Nursing Vital Signs: Initial Vital Signs Temperature 96.7 F 04/14/25 20:43 Pulse Rate 97 H 04/14/25 20:43 Respiratory Rate 18 04/14/25 20:43 Blood Pressure 149/95 04/14/25 20:43 O2 Sat by Pulse Oximetry 97 04/14/25 20:43 Pain Scale Pain Intensity 9 - Physical Exam General Appearance: no apparent distress Respiratory Exam: normal breath sounds, lungs clear, No chest tenderness, No respiratory distress Cardiovascular Exam: regular rate/rhythm, normal heart sounds Gastrointestinal/Abdomen Exam: soft, normal bowel sounds Back Exam: normal inspection Extremity Exam: other (Cellulitis on the right lower extremity) Neurologic Exam: alert, oriented x 3 Skin Exam: other (Area of cellulitis on the right lower extremity. It goes almost up to her knee.It starts at her ankle) SpO2: 97 - Course Nursing assessment & vital signs reviewed: Yes Ordered Tests: Active Orders 24 hr Category Date Time Status CBC W DIFF Stat Lab 04/14/25 21:18 Completed CMP Stat Lab 04/14/25 21:18 Completed Medication Summary Generic Name Dose Route Start Last Admin Trade Name Freq PRN Reason Stop Dose Admin Ceftriaxone Sodium 1 gm in 100 mls @ 200 mls/hr 04/14/25 21:59 04/14/25 22:01 Rocephin 1 Gm / 100 Ml Nacl IV 04/14/25 22:28 200 mls/hr STAT ONE 200 mls/hr Administration Discontinued Medications Generic Name Dose Route Start Last Admin Trade Name Freq PRN Reason Stop Dose Admin Ceftriaxone Sodium Confirm 04/14/25 22:00 Rocephin 1 Gm / 100 Ml Nacl Administered 04/14/25 22:01 Dose 1 gm in 100 mls @ ud IV .STK-MED ONE Lab/Rad Data: Laboratory Result Diagrams 04/14/25 21:18 04/14/25 21:18 Laboratory Results 04/14/25 04/14/25 Range/Units 21:18 21:18 WBC 6.6 (3.98-10.04) x10^3/uL RBC 4.46 (3.93-5.22) x10^6/uL Hgb 13.7 (11.2-15.7) g/dL Hct 39.7 (34.1-44.9) % MCV 89.0 (79.4-94.8) fL MCH 30.7 (25.6-32.2) pg MCHC 34.5 (32.2-35.5) g/dL RDW 12.9 (11.7-14.4) % Plt Count 209 (182-369) x10^3/uL MPV 9.0 L (9.4-12.3) fL Gran % 58.9 (34.0-71.1) % Immature Gran % (Auto) 0.3 (0.001-0.429) % Nucleat RBC Rel Count 0.0 (0.00-0.2) % Eos # (Auto) 0.39 H (0.04-0.36) x10^3/uL Immature Gran # (Auto) 0.02 (0.001-0.031) x10^3u/L Absolute Lymphs (auto) 1.68 (1.18-3.74) x10^3/uL Absolute Monos (auto) 0.59 (0.24-0.86) x10^3/uL Absolute Nucleated RBC 0.00 (0.00-0.012) x10^3u/L Lymphocytes % 25.4 (19.3-51.7) % Monocytes % 8.9 (4.7-12.5) % Eosinophils % 5.9 H (0.7-5.8) % Basophils % 0.6 (0.1-1.2) % Absolute Granulocytes 3.89 (1.56-6.13) x10^3/uL Basophils # 0.04 (0.01-0.08) x10^3/uL Sodium 138 (135-145) mmol/L Potassium 3.9 (3.5-5.1) mmol/L Chloride 103 (98-107) mmol/L Carbon Dioxide 28 (22-30) mmol/L Anion Gap 11.4 (5-15) MEQ/L BUN 19 H (7-17) mg/dL Creatinine 0.80 (0.52-1.04) mg/dL Estimated GFR 85.4 ML/MIN Glucose 109 H (74-106) mg/dL Calcium 9.2 (8.4-10.2) mg/dL Total Bilirubin 0.70 (0.2-1.3) mg/dL AST 25 (14-36) U/L ALT 27 (0-35) U/L Alkaline Phosphatase 58 (38-126) U/L Serum Total Protein 6.8 (6.3-8.2) g/dL Albumin 4.0 (3.5-5.0) g/dL - Progress Progress: unchanged Progress Note: Patient has cellulitis that is failed outpatient therapy. I talked with the hospitalist and he agreed to admit her. I went to give her some Rocephin down here and was started on vancomycin as well. 04/14/25 22:04 - Departure Departure Disposition: Observation Clinical Impression: Cellulitis of lower leg Condition: Stable Critical Care Time: No Referrals: DIOGO ROGERS, RACHEL [Primary Care Provider, [facility]] - Follow up/PCP as directed
[2025-04-14 21:19] LABS: BASOPHIL % 0.6 % (0.1-1.2); Basophil (Absolute #) 0.04 x10^3/uL (0.01-0.08); Eosinophil (Absolute #) 0.39 x10^3/uL (0.04-0.36); Hematocrit 39.7 % (34.1-44.9); Hemoglobin 13.7 g/dL (11.2-15.7); IMMATURE GRAN # 0.02 x10^3u/L (0.001-0.031); IMMATURE GRAN % 0.3 % (0.001-0.429); Lymphocyte (Absolute #) 1.68 x10^3/uL (1.18-3.74); Mean Corpuscular Hemoglobin 30.7 pg (25.6-32.2); Mean Corpuscular Hgb Concent. 34.5 g/dL (32.2-35.5); Monocyte (Absolute #) 0.59 x10^3/uL (0.24-0.86); NUCLEATED RBC # 0.00 x10^3u/L (0.00-0.012); NUCLEATED RBC % 0.0 % (0.00-0.2); Platelet Count 209 x10^3/uL (182-369); Red Blood Count 4.46 x10^6/uL (3.93-5.22); White Blood Count 6.6 x10^3/uL (3.98-10.04)
[2025-04-14 21:32] LABS: Calcium 9.2 mg/dL (8.4-10.2); Carbon Dioxide 28.0 mmol/L (22-30); Creatinine 1 0.8 mg/dL (0.52-1.04); EST GLOMERULAR FILTRATION RATE 85.4 ML/MIN; Glucose 109.0 mg/dL (74-106); Potassium 3.9 mmol/L (3.5-5.1); SGOT/AST 25.0 U/L (14-36); SGPT/ALT 27.0 U/L (0-35); Total Protein 6.8 g/dL (6.3-8.2)
[2025-04-14] MEDS ORDERED: ROCEPHIN 1 GM / 100 ML NaCl 1 GM/100 ML IVPB IV ONE (22:00)
[2025-04-14] MEDS: ROCEPHIN 1 GM / 100 ML NaCl 1 GM/100 ML IVPB IV ONE (22:01)
[2025-04-14] MEDS ORDERED: FEVERALL 650 MG PR PRN (22:05)
[2025-04-14] MEDS ORDERED: VANCOCIN INJECTION*** 1 GM in Sodium Chloride 0.9% 250 ML 250 ML IV SCH (22:30)
[2025-04-14] MEDS ORDERED: VANCOMYCIN 1 GRAM/200 ML BAG 1 GM/200 ML PIGGYBACK IV ONE (23:17)
[2025-04-14] MEDS: VANCOMYCIN 1 GRAM/200 ML BAG 1 GM/200 ML PIGGYBACK IV ONE (23:23)
[2025-04-15] MEDS ORDERED: FEVERALL 650 MG PR PRN (00:18)
--- NOTE | 2025-04-15 00:25 | PCM.HP ---
History of Present Illness - Chief Complaint Chief Complaint: Cellulitis History of Present Illness: 59 female with medical history of chronic leg swelling on Lasix, recently diagnosed right lower extremity cellulitis completed 7 days course of IV cefdinir and doxycycline presented to ER with complaint of persistent right lower extremity redness. On my encounter patient is alert oriented x 4 reports despite being compliant on antibiotic redness has not improved associated with mild pain. Denies chest pain, shortness of breath, abdominal pain, nausea, vomiting. On arrival vitals are stable, white blood cell 6.6, s/p IV ceftriaxone and vancomycin in ER. - Review of Systems Constitutional: No Symptoms Eyes: No Symptoms Respiratory: No Symptoms Cardiac: No Symptoms Abdominal/Gastrointestinal: No Symptoms Musculoskeletal: No Symptoms Skin: Cellulitis Neurological: No Symptoms Medications & Allergies Home Medications: Home Medication List Cefdinir 300 mg [Omnicef 300 mg] 300 mg PO BID 04/14/25 [History Confirmed 04/14/25] Doxycycline Hyclate 100 mg [Vibramycin 100 MG] 100 mg PO BID 04/14/25 [History Confirmed 04/14/25] Allergies/Adverse Reactions: Allergies Allergy/AdvReac Type Severity Reaction Status Date / Time metformin AdvReac Unknown Verified 04/14/25 20:42 band-aids AdvReac Mild Rash Uncoded 04/14/25 20:42 - Past Medical History Past Medical History: Yes Neurological History: No Pertinent History ENT History: No Pertinent History Cardiac History: No Pertinent History Respiratory History: Asthma Endocrine Medical History: No Pertinent History Musculoskelatal History: Arthritis GI Medical History: GERD History: No Pertinent History Pyscho-Social History: No Pertinent History Reproductive Disorders: No Pertinent History Comment: Pituitary Tumor, Excision skin lesion abdomen and leg, Anemia - received iron injections - Past Surgical History Past Surgical History: Yes Neuro Surgical History: No Pertinent History Cardiac History: No Pertinent History Respiratory Surgery: No Pertinent History GI Surgical History: No Pertinent History Genitourinary Surgical Hx: No Pertinent History Musculskeletal Surgical Hx: No Pertinent History Female Surgical History: Hysterectomy Other Surgical History: Nose - deviated septum Significant Family History: no pertinent family hx - Social History Smoking Status: Never smoker Exposure to second hand smoke: Yes Alcohol: None Drug Use: none - Social Determinants of Health Will the patient participate in the screening: Yes Do you worry about a steady place to live?: No Do you have any problems with any of the following?: No known problems In the past 12 months,have you had to go without utilities?: No Have you or anyone in your house had to go without enough: No Transportation Issues: No Has anyone in your support network made you feel unsafe?: No Does the patient want assistance with any of the above?: No - Physical Exam Vital Signs: Vital Signs - 24 hr Temp Pulse Resp BP BP BP Pulse Ox 04/14/25 22:25 96.9 F 76 20 112/56 99 04/14/25 22:05 97 04/14/25 22:01 81 123/59 98 04/14/25 21:31 83 140/55 97 04/14/25 21:01 85 128/56 97 04/14/25 20:44 80 149/95 98 04/14/25 20:43 96.7 F 97 H 18 149/95 97 General Appearance: no apparent distress Respiratory Exam: normal breath sounds Cardiovascular Exam: regular rate/rhythm Gastrointestinal/Abdomen Exam: soft (Skin: R lower ext redness) Results - Labs Lab/Micro Results: Lab Results-Last 24 Hours 04/14/25 04/14/25 Range/Units 21:18 21:18 WBC 6.6 (3.98-10.04) x10^3/uL RBC 4.46 (3.93-5.22) x10^6/uL Hgb 13.7 (11.2-15.7) g/dL Hct 39.7 (34.1-44.9) % MCV 89.0 (79.4-94.8) fL MCH 30.7 (25.6-32.2) pg MCHC 34.5 (32.2-35.5) g/dL RDW 12.9 (11.7-14.4) % Plt Count 209 (182-369) x10^3/uL MPV 9.0 L (9.4-12.3) fL Gran % 58.9 (34.0-71.1) % Immature Gran % (Auto) 0.3 (0.001-0.429) % Nucleat RBC Rel Count 0.0 (0.00-0.2) % Eos # (Auto) 0.39 H (0.04-0.36) x10^3/uL Immature Gran # (Auto) 0.02 (0.001-0.031) x10^3u/L Absolute Lymphs (auto) 1.68 (1.18-3.74) x10^3/uL Absolute Monos (auto) 0.59 (0.24-0.86) x10^3/uL Absolute Nucleated RBC 0.00 (0.00-0.012) x10^3u/L Lymphocytes % 25.4 (19.3-51.7) % Monocytes % 8.9 (4.7-12.5) % Eosinophils % 5.9 H (0.7-5.8) % Basophils % 0.6 (0.1-1.2) % Absolute Granulocytes 3.89 (1.56-6.13) x10^3/uL Basophils # 0.04 (0.01-0.08) x10^3/uL Sodium 138 (135-145) mmol/L Potassium 3.9 (3.5-5.1) mmol/L Chloride 103 (98-107) mmol/L Carbon Dioxide 28 (22-30) mmol/L Anion Gap 11.4 (5-15) MEQ/L BUN 19 H (7-17) mg/dL Creatinine 0.80 (0.52-1.04) mg/dL Estimated GFR 85.4 ML/MIN Glucose 109 H (74-106) mg/dL Calcium 9.2 (8.4-10.2) mg/dL Total Bilirubin 0.70 (0.2-1.3) mg/dL AST 25 (14-36) U/L ALT 27 (0-35) U/L Alkaline Phosphatase 58 (38-126) U/L Serum Total Protein 6.8 (6.3-8.2) g/dL Albumin 4.0 (3.5-5.0) g/dL - Other Procedures and Tests Respiratory Therapy 04/15/25 07:30 RT Screen per Nursing Assess ONCE Assessment/Plan (1) Cellulitis of lower leg Current Visit: Yes Status: Acute Assessment & Plan: 59 female with medical history of bilateral lower extremity swelling on Lasix, recently diagnosed right lower extremity cellulitis admitted for failed outpatient p.o. antibiotic course. # Right lower extremity cellulitis Failed outpatient cefdinir and doxycycline. Started on IV ceftriaxone and vancomycin. Cellulitis area is demarcated. Monitor closely. #Bilateral lower extremity swelling Chronic in nature. Continue Lasix. DVT prophylaxis Lovenox 40 mg subcu daily. Telemedicine Statement: 1) Service was provided using HIPAA compliant platform utilizing [employer] for audio/visual equipment. 2) Patient location: [facility] 3) Provider location: [place] 4) Participants digital content producer: Bedside RN, patient 5) Consent was obtained and the patient was seen with nurse assisting at the bedside. Anticipated length of stay: I anticipate the patient requires hospital level of care for at least <2 midnights observation unit or longer based on the complexity of the patient's medical illness right lower extremity cellulitis failed outpatient p.o. antibiotic which includes the need for IV antibiotic IV ceftriaxone 1 g daily and IV vancomycin that cannot be done at a lower level of care Consent: - Patients identity was confirmed. - Medical condition or illness was discussed with the patient/personal canvas products sales representative. - Current proposed treatment for medical condition or illness was explained to patient/personal canvas products sales representative along with the likely benefits, significant risks and complications associated with the treatment. - The patient/personal canvas products sales representative verbally authorized treatment to be provided by audio/video, which may include a limited review of patients current health status, medication or other treatment recommendations, patient education and an opportunity to ask questions about condition and treatment. - I have reviewed all available old records and data - Verbal Consent granted: Yes I spent total of 78 minutes providing care to this patient which includes time for face to face visit via telemedicine, review of medical records, imaging studies and discussion of findings with providers, the patient Code(s): L03.119 - CELLULITIS OF UNSPECIFIED PART OF LIMB Telemedicine Encounter - Telemedicine Encounter Telemedicine Encounter: "The entirety of this encounter was performed via Telemedicine" This visit was performed using real-time audio and video connection between my location and thepatients locationwith the assistance of a surrogateat the patients location. Written or verbal consent was obtained from the patient/guardian to perform this visit using[employer] technology. Any patient questions regarding the telemedicine interaction were answered.
[2025-04-15] MEDS: VANCOCIN INJECTION*** 1 GM in Sodium Chloride 0.9% 250 ML 250 ML IV SCH (00:38)
[2025-04-15 06:27] LABS: Hematocrit 40.7 % (34.1-44.9); Hemoglobin 13.5 g/dL (11.2-15.7); Mean Corpuscular Hemoglobin 30.2 pg (25.6-32.2); Mean Corpuscular Hgb Concent. 33.2 g/dL (32.2-35.5); Platelet Count 193 x10^3/uL (182-369); Red Blood Count 4.47 x10^6/uL (3.93-5.22); White Blood Count 5.5 x10^3/uL (3.98-10.04)
[2025-04-15 06:56] LABS: Calcium 9.0 mg/dL (8.4-10.2); Carbon Dioxide 31.0 mmol/L (22-30); Creatinine 1 0.74 mg/dL (0.52-1.04); EST GLOMERULAR FILTRATION RATE 93.7 ML/MIN; Glucose 107.0 mg/dL (74-106); Potassium 4.3 mmol/L (3.5-5.1)
[2025-04-15] MEDS ORDERED: Zofran 4 MG/2 ML VIAL IV PRN (07:38)
[2025-04-15] MEDS ORDERED: Lasix 40 MG PO SCH (10:00)
[2025-04-15] MEDS ORDERED: LASIX 20 MG PO SCH (10:00)
[2025-04-15] MEDS: VANCOMYCIN 1.5 GRAM/300 ML BAG 1.5 GM/300 ML PIGGYBACK IV SCH (10:24)
[2025-04-15] MEDS: Lasix 40 MG/4 ML IV SCH (10:24)
[2025-04-15] MEDS: ENOXAPARIN SODIUM SQ SCH (10:25)
[2025-04-15] MEDS: ROCEPHIN 1 GM / 100 ML NaCl 1 GM/100 ML IVPB IV SCH (21:03)
[2025-04-16 05:17] LABS: BASOPHIL % 0.8 % (0.1-1.2); Basophil (Absolute #) 0.05 x10^3/uL (0.01-0.08); Eosinophil (Absolute #) 0.39 x10^3/uL (0.04-0.36); Hematocrit 42.4 % (34.1-44.9); Hemoglobin 14.2 g/dL (11.2-15.7); IMMATURE GRAN # 0.02 x10^3u/L (0.001-0.031); IMMATURE GRAN % 0.3 % (0.001-0.429); Lymphocyte (Absolute #) 1.47 x10^3/uL (1.18-3.74); Mean Corpuscular Hemoglobin 30.3 pg (25.6-32.2); Mean Corpuscular Hgb Concent. 33.5 g/dL (32.2-35.5); Monocyte (Absolute #) 0.50 x10^3/uL (0.24-0.86); NUCLEATED RBC # 0.00 x10^3u/L (0.00-0.012); NUCLEATED RBC % 0.0 % (0.00-0.2); Platelet Count 204 x10^3/uL (182-369); Red Blood Count 4.69 x10^6/uL (3.93-5.22); White Blood Count 6.1 x10^3/uL (3.98-10.04)
[2025-04-16 05:47] LABS: Calcium 9.1 mg/dL (8.4-10.2); Carbon Dioxide 31.0 mmol/L (22-30); Creatinine 1 0.76 mg/dL (0.52-1.04); EST GLOMERULAR FILTRATION RATE 90.8 ML/MIN; Glucose 105.0 mg/dL (74-106); Potassium 4.0 mmol/L (3.5-5.1); SGOT/AST 26.0 U/L (14-36); SGPT/ALT 26.0 U/L (0-35); Total Protein 6.6 g/dL (6.3-8.2)
[2025-04-16 07:16] VITALS: RESP 16; O2SAT 93
--- NOTE | 2025-04-16 07:46 | PCM.CONS ---
Podiatry HPI - Consult Date of Consultation Date: 04/16/25 Reason for Consult: Cellulitis right lower extremity, bilateral venous insufficency Consulting Provider: JENNIFER LEDESMA DPM - [facility] History of Present Illness: Fabby is a very pleasant 59-year-old female with significant medical history of chronic leg swelling with no obvious systemic cause. Patient at this time has developed cellulitis for which she was on doxycycline and did not respond to conservative management. She was noticing an increase in pain to the right lower extremity over the course of the last several days and reported to the emergency department where on clinical examination patient was admitted for cellulitis and venous insufficiency. Patient currently denies any constitutional symptoms of infection. White blood cell count is 6.6 on arrival patient was placed on IV ceftriaxone and vancomycin in the emergency department and then admitted for diuresis. Patient at this time has noticed significant improvement with diuresis therapy as well as IV antibiotics. She has lost 7 pounds over the last 24 hours with diuresis alone. She currently denies any other complaints at this moment Medications & Allergies Home Medications: Home Medication List Cefdinir 300 mg [Omnicef 300 mg] 300 mg PO BID 04/14/25 [History Confirmed 04/14/25] Doxycycline Hyclate 100 mg [Vibramycin 100 MG] 100 mg PO BID 04/14/25 [History Confirmed 04/14/25] Allergies/Adverse Reactions: Allergies Allergy/AdvReac Type Severity Reaction Status Date / Time metformin AdvReac Unknown Verified 04/14/25 20:42 band-aids AdvReac Mild Rash Uncoded 04/14/25 20:42 - Past Medical History Past Medical History: Yes Neurological History: No Pertinent History ENT History: No Pertinent History Cardiac History: No Pertinent History Respiratory History: Asthma Endocrine Medical History: No Pertinent History Musculoskelatal History: Arthritis GI Medical History: GERD History: No Pertinent History Pyscho-Social History: No Pertinent History Reproductive Disorders: No Pertinent History Comment: Pituitary Tumor, Excision skin lesion abdomen and leg, Anemia - received iron injections - Past Surgical History Past Surgical History: Yes Neuro Surgical History: No Pertinent History Cardiac History: No Pertinent History Respiratory Surgery: No Pertinent History GI Surgical History: No Pertinent History Genitourinary Surgical Hx: No Pertinent History Musculskeletal Surgical Hx: No Pertinent History Female Surgical History: Hysterectomy Other Surgical History: Nose - deviated septum Significant Family History: no pertinent family hx - Social History Smoking Status: Never smoker Exposure to second hand smoke: Yes Alcohol: None Drug Use: none - Social Determinants of Health Will the patient participate in the screening: Yes Do you worry about a steady place to live?: No Do you have any problems with any of the following?: No known problems In the past 12 months,have you had to go without utilities?: No Have you or anyone in your house had to go without enough: No Transportation Issues: No Has anyone in your support network made you feel unsafe?: No Does the patient want assistance with any of the above?: No Physical Exam - Narrative Narrative Physical Exam: Podiatry Physical Exam Results - Labs Lab/Micro Results: Lab Results-Last 24 Hours 04/16/25 04/16/25 Range/Units 04:15 04:15 WBC 6.1 (3.98-10.04) x10^3/uL RBC 4.69 (3.93-5.22) x10^6/uL Hgb 14.2 (11.2-15.7) g/dL Hct 42.4 (34.1-44.9) % MCV 90.4 (79.4-94.8) fL MCH 30.3 (25.6-32.2) pg MCHC 33.5 (32.2-35.5) g/dL RDW 13.1 (11.7-14.4) % Plt Count 204 (182-369) x10^3/uL MPV 9.3 L (9.4-12.3) fL Gran % 60.2 (34.0-71.1) % Immature Gran % (Auto) 0.3 (0.001-0.429) % Nucleat RBC Rel Count 0.0 (0.00-0.2) % Eos # (Auto) 0.39 H (0.04-0.36) x10^3/uL Immature Gran # (Auto) 0.02 (0.001-0.031) x10^3u/L Absolute Lymphs (auto) 1.47 (1.18-3.74) x10^3/uL Absolute Monos (auto) 0.50 (0.24-0.86) x10^3/uL Absolute Nucleated RBC 0.00 (0.00-0.012) x10^3u/L Lymphocytes % 24.1 (19.3-51.7) % Monocytes % 8.2 (4.7-12.5) % Eosinophils % 6.4 H (0.7-5.8) % Basophils % 0.8 (0.1-1.2) % Absolute Granulocytes 3.66 (1.56-6.13) x10^3/uL Basophils # 0.05 (0.01-0.08) x10^3/uL Sodium 139 (135-145) mmol/L Potassium 4.0 (3.5-5.1) mmol/L Chloride 102 (98-107) mmol/L Carbon Dioxide 31 H (22-30) mmol/L Anion Gap 10.4 (5-15) MEQ/L BUN 21 H (7-17) mg/dL Creatinine 0.76 (0.52-1.04) mg/dL Estimated GFR 90.8 ML/MIN Glucose 105 (74-106) mg/dL Calcium 9.1 (8.4-10.2) mg/dL Total Bilirubin 1.10 (0.2-1.3) mg/dL AST 26 (14-36) U/L ALT 26 (0-35) U/L Alkaline Phosphatase 48 (38-126) U/L Serum Total Protein 6.6 (6.3-8.2) g/dL Albumin 3.8 (3.5-5.0) g/dL - Radiology Impressions Radiology Exams & Impressions: Radiology Procedures Category Date Time Status VENOUS BILATERAL EXTREMITY [US] Routine Exams 04/16/25 08:00 Ordered Assessment/Plan (1) Venous insufficiency (chronic) (peripheral) Current Visit: Yes Status: Acute Assessment & Plan: Initial patient examination and evaluation. Recommendation for advanced imaging to consist of venous Dopplers to assess for possibility of deep vein thrombosis however likelihood appears to be low given patient's complaints are not isolated to vasculature however this will help us determine if patient is good candidate for compression therapy Patient to continue IV antibiotics while inpatient cellulitis to the right lower extremity appears to be resolving. Patient has admitted to infrequent use of the oral diuresis at home but has noticed an improvement. Here at the hospital she is taking 40 mg IV Lasix for which she is seen a significant improvement to her pain and the volume overload. Patient will likely be a good candidate for compression therapy in the form of Unna boots to the bilateral lower extremity. Patient does have appointment for fitting for lymphedema pumps tomorrow at her home for which I do believe she requires and would like to have her attend this appointment. Once compression and IV diuresis has commenced today patient is okay for discharge from my standpoint as long as medicine team approves Patient to follow-up on Wednesday for changing out of Unna boot Patient may not be a good candidate for home health care since she is not homebound however would like to attempt with short-term compression therapy and then switch to compression stockings later this week Thank you for the consult Will follow with you (2) Localized edema Current Visit: Yes Status: Acute Code(s): R60.0 - LOCALIZED EDEMA (3) Cellulitis of lower leg Current Visit: Yes Status: Acute Code(s): L03.119 - CELLULITIS OF UNSPECIFIED PART OF LIMB
[2025-04-16] MEDS ORDERED: TYLENOL 325 MG PO PRN (07:54)
[2025-04-16 08:18] LABS: NT PRO BNPII 112.0 pg/mL (<300)
--- NOTE | 2025-04-16 08:59 | PCM.DS ---
Discharge Summary Date of Admission: 04/14/25 22:23 Date of Discharge: 04/16/25 Admitting Physician: SUZY VILLARREAL MD Consults: Consults on Case 04/15/25 09:31 Consult Podiatry ROUTINE Primary Care Provider: DIOGO ROGERS Allergies Allergies metformin Adverse Reaction (Unknown, Verified 04/14/25 20:42) band-aids Adverse Reaction (Mild, Uncoded 04/14/25 20:42) Rash VERIFIED 12/03/24 Hospital Summary - Hospital Course Hospital Course: The patient is a 59-year-old female with a past medical history of asthma, GERD, osteoarthritis, pituitary tumor, morbid obesity, and chronic bilateral lower extremity swelling managed with Lasix, who was admitted on 04/15/25 for persistent right lower extremity redness. She had recently completed a 7-day course of IV cefdinir and doxycycline for right lower extremity cellulitis but presented to the ER due to lack of improvement. On initial evaluation, the patient was alert and oriented x4, reporting persistent redness with mild pain despite antibiotic compliance. She denied chest pain, shortness of breath, abdominal pain, nausea, or vomiting. Vital signs were stable, and WBC count was 6.6. She received IV ceftriaxone and vancomycin in the ER. On 04/16, labs were overall unremarkable. Podiatry was consulted and the patient is currently awaiting a venous duplex. Per podiatry, if the duplex results are negative for concern, they plan to wrap the legs and discharge the patient home this afternoon. The patient has an appointment tomorrow morning for lymphedema pump therapy, so she is expected to discharge today. Plan includes continuation of Lasix for bilateral lower extremity edema, continuation of antibiotics for cellulitis IV IP,. Will continue Antbx PO and outpatient follow-up with podiatry. - Vitals & Intake/Output Vital Signs: Vital Signs Temperature 97.8 F 04/16/25 07:14 Pulse Rate 72 04/16/25 07:14 Respiratory Rate 16 04/16/25 07:14 Blood Pressure 105/55 04/16/25 07:14 O2 Sat by Pulse Oximetry 93 L 04/16/25 07:14 Intake & Output: Intake & Output 04/13/25 04/14/25 04/15/25 04/16/25 11:59 11:59 11:59 11:59 Intake Total 664 1907 Output Total 0622 9164 Balance -1466 -9885 Weight 151.6 kg 148.6 kg - Lab Result Diagrams: 04/16/25 04:15 04/16/25 04:15 Lab Results-Last 24 Hrs: Lab Results-Last 24 Hours 04/16/25 04/16/25 04/16/25 Range/Units 04:15 04:15 04:15 WBC 6.1 (3.98-10.04) x10^3/uL RBC 4.69 (3.93-5.22) x10^6/uL Hgb 14.2 (11.2-15.7) g/dL Hct 42.4 (34.1-44.9) % MCV 90.4 (79.4-94.8) fL MCH 30.3 (25.6-32.2) pg MCHC 33.5 (32.2-35.5) g/dL RDW 13.1 (11.7-14.4) % Plt Count 204 (182-369) x10^3/uL MPV 9.3 L (9.4-12.3) fL Gran % 60.2 (34.0-71.1) % Immature Gran % (Auto) 0.3 (0.001-0.429) % Nucleat RBC Rel Count 0.0 (0.00-0.2) % Eos # (Auto) 0.39 H (0.04-0.36) x10^3/uL Immature Gran # (Auto) 0.02 (0.001-0.031) x10^3u/L Absolute Lymphs (auto) 1.47 (1.18-3.74) x10^3/uL Absolute Monos (auto) 0.50 (0.24-0.86) x10^3/uL Absolute Nucleated RBC 0.00 (0.00-0.012) x10^3u/L Lymphocytes % 24.1 (19.3-51.7) % Monocytes % 8.2 (4.7-12.5) % Eosinophils % 6.4 H (0.7-5.8) % Basophils % 0.8 (0.1-1.2) % Absolute Granulocytes 3.66 (1.56-6.13) x10^3/uL Basophils # 0.05 (0.01-0.08) x10^3/uL Sodium 139 (135-145) mmol/L Potassium 4.0 (3.5-5.1) mmol/L Chloride 102 (98-107) mmol/L Carbon Dioxide 31 H (22-30) mmol/L Anion Gap 10.4 (5-15) MEQ/L BUN 21 H (7-17) mg/dL Creatinine 0.76 (0.52-1.04) mg/dL Estimated GFR 90.8 ML/MIN Glucose 105 (74-106) mg/dL Calcium 9.1 (8.4-10.2) mg/dL Magnesium 2.2 (1.6-2.3) mg/dL Total Bilirubin 1.10 (0.2-1.3) mg/dL AST 26 (14-36) U/L ALT 26 (0-35) U/L Alkaline Phosphatase 48 (38-126) U/L NT-Pro-B Natriuret Pep 112 (<300) pg/mL Serum Total Protein 6.6 (6.3-8.2) g/dL Albumin 3.8 (3.5-5.0) g/dL - Radiology Exams Ordered Rad Exams-Entire Visit: Radiology Procedures Category Date Time Status CHEST 1 VIEW (PORTABLE) Routine Exams 04/16/25 07:51 Ordered VENOUS BILATERAL EXTREMITY [US] Routine Exams 04/16/25 08:00 Ordered - Procedures and Test Procedures and Tests throughout Hospitalization: Therapy Orders & Screens 04/15/25 05:04 Respiratory Therapy Assessment DAILY Comment: Diagnosis: Cellulitis 04/15/25 07:30 OT Screen per Nursing Assess ONCE Comment: Protocol Order Physician Instructions: Greater than 3 points order OT Admission Screening Reason For Exam: Triggered on Admission Diagnosis: Cellulitis Open Wound/Cellutlitis/Pressure Ulcers: Yes Acute Fx/ORIF/Change in wt bearing status: No Severe MUSCULOSKELETAL pain: No ADL Dysfunction: No Acute CVA w/Hemiparesis/Hemiplegia: No Decreased Functional Mobility/Strength: No Sprain/Strain: No Acute Post-op Mobility Dysfunction: No Total Points: 5 PT Screen per Nursing Assess ONCE Comment: Protocol Order Physician Instructions: Greater than 3 points order PT Admission Screenin Reason For Exam: Triggered on Admission Diagnosis: Cellulitis Open Wound/Cellutlitis/Pressure Ulcers: Yes Acute Fx/ORIF/Change in wt bearing status: No Severe MUSCULOSKELETAL pain: No ADL Dysfunction: No Acute CVA w/Hemiparesis/Hemiplegia: No Decreased Functional Mobility/Strength: No Sprain/Strain: No Acute Post-op Mobility Dysfunction: No Total Points: 5 RT Screen per Nursing Assess ONCE Comment: Protocol Order Physician Instructions: Greater than 3 points order RT Admission Screen Reason For Exam: Triggered on Admission Diagnosis: Cellulitis Diagnosis: Cellulitis Pneumonia: No Home O2: No Asthma: Yes CHF: No Home CPAP/BIPAP: No Home Nebs/MDI: Yes Total Points: 9 Discharge Exam General Appearance: no apparent distress, alert, obese Neurologic Exam: alert, oriented x 3, cooperative, normal mood/affect, nml cerebellar function, sensation nml, No motor deficits Eye Exam: PERRL, EOMI, eyes nml inspection Ears, Nose, Throat Exam: normal ENT inspection, pharynx normal, moist mucous membranes Neck Exam: normal inspection, non-tender, supple, full range of motion Respiratory Exam: normal breath sounds, lungs clear, No respiratory distress Cardiovascular Exam: regular rate/rhythm, normal heart sounds, edema (BLLE- non- pitting) Gastrointestinal/Abdomen Exam: soft, No tenderness, No mass Pelvic Exam: deferred Rectal Exam: deferred Back Exam: normal inspection, normal range of motion, No CVA tenderness, No vertebral tenderness Extremity Exam: normal inspection, normal range of motion Skin Exam: normal color, warm, dry Wound Assessment: Skin/Wound Assessment Wound/Incision Assessment Start: 04/14/25 22:44 Text: Status: Active Freq: Q6H Protocol: Document 04/16/25 02:00 KD (Rec: 04/16/25 02:13 KD [id number]) Wound/Incision Assessment Right Lower Leg Wound Assessment Shift Assessment Wound Type Cellulitis Wound Stage Non Pressure Wound Drainage Amount None General Appearance Open to air,Clean/Dry,Reddened Comment Cellulitis Wound Photo Photo Taken No Final Diagnosis/Problem List - Final Discharge Diagnosis/Problem (1) Cellulitis of lower leg Current Visit: Yes Status: Acute Assessment & Plan: - Failed OP antibiotics - IV antibiotics - Podiatry consult - Venous duplex BLLE- negative - BNP 112 - CXR- pending - Lasix 40 daily - Daily weight - Strict I&O - CBC, CMP reviewed Code(s): L03.119 - CELLULITIS OF UNSPECIFIED PART OF LIMB (2) Venous insufficiency (chronic) (peripheral) Current Visit: Yes Status: Chronic Assessment & Plan: - Pt has appointment tomorrow for lymphedema pumps eval at home. - Podiatry consult for wraps of BLLE (3) Morbid obesity with BMI of 50.0-59.9, adult Current Visit: Yes Status: Chronic Assessment & Plan: - Advised diet and exercise control D/C plan time: > 32 minutes Code(s): E66.01 - MORBID (SEVERE) OBESITY DUE TO EXCESS CALORIES; Z68.43 - BODY MASS INDEX [BMI] 50.0-59.9, ADULT - Discharge Discharge Date: 04/16/25 Disposition: Home, Self-Care Condition: Stable Prescriptions: New cefuroxime axetiL [Cefuroxime] 500 mg PO BID 7 Days #14 tablet Discontinued Doxycycline Hyclate 100 mg [Vibramycin 100 MG] 100 mg PO BID Cefdinir 300 mg [Omnicef 300 mg] 300 mg PO BID Follow up with: JENNIFER LEDESMA DPM [ACTIVE STAFF, PODIATRY] - 04/18/25 2:30 pm DIOGO ROGERS NP [Primary Care Provider, [facility]] - 04/23/25 9:30 am
--- NOTE | 2025-04-16 10:05 | XRAY ---
Indication: Edema. Comparison: January 22, 2021 Portable apical lordotic chest again demonstrates normal heart and lungs. Bony thorax intact again with minimal degenerative changes. No new/acute findings.
[2025-04-16 11:58] VITALS: BP 119/58; PULSE 61; TEMP 98.7
--- NOTE | 2025-04-16 12:23 | XRAY ---
Indication: Bilateral edema. Two-dimensional sonogram and color Doppler imaging major venous vessels left and right leg performed. Comparison: None Spraying Machine Operator notes technically difficult sonogram due to patient body habitus. No thrombus seen in the visualized deep venous vessels left and right leg including greater saphenous vein. Veins demonstrate normal compressibility. Venous waveforms are normal with and without augmentation. Impression: Left and right legs grossly negative for DVT.
[2025-04-16] MEDS ORDERED: TROUGH DRUG LEVELS IJ ONE (21:30)
== END 2025-04-16 16:54 | disposition home or self-care (01) ==
LOC: ED 20:36 → MED SURG 22:23
PROVIDERS: ADMIT Internal Medicine; ATTEND Internal Medicine
DX: L03.115 Cellulitis of right lower limb (principal); I87.2 Venous insufficiency (chronic) (peripheral); R60.0 Localized edema; E66.01 Morbid (severe) obesity due to excess calories; Z79.899 Other long term (current) drug therapy; Z68.43 Body mass index [BMI] 50.0-59.9, adult